=== PATIENT | female | born 1945 | race Caucasian/White ===

== ENCOUNTER 2020-02-11 10:18 | Emergency (ER) | payer MEDICARE ==
[~2020-02-11] VITALS: Ht 157.5 cm; Wt 88.5 kg
[2020-02-11] MEDS ORDERED: CELECOXIB200 MG PO (10:35)
[2020-02-11] MEDS ORDERED: OXYCODONE HCL5 MG PO (10:36)
[2020-02-11] MEDS ORDERED: DULOXETINE HCL30 MG PO (10:36)
[2020-02-11] MEDS ORDERED: LOSARTAN POTASS50 MG PO (10:36)
[2020-02-11] MEDS ORDERED: LEVOTHYROXINE100 MCG PO (10:36)
[2020-02-11] MEDS ORDERED: ATORVASTATIN CA20 MG PO (10:36)
[2020-02-11] MEDS ORDERED: METFORMIN HCL500 MG PO (10:37)
== END 2020-02-11 11:29 | disposition home or self-care (01) ==
LOC: ED 10:18
DX: M79.662 Pain in left lower leg (principal); Z88.8 Allergy status to other drugs, medicaments and biological substances; Z79.899 Other long term (current) drug therapy; Z79.84 Long term (current) use of oral hypoglycemic drugs
CPT/HCPCS: 93971; 99283-25